=== PATIENT | female | born 1970 | race Caucasian/White ===

== ENCOUNTER 2018-01-04 12:52 | Emergency (ER) | payer OTHER, SELFPAY ==
--- NOTE | 2018-01-04 12:25 | PC.NURSE ---
Dr Crowley office [facility] reports they are sending pt over for possible recurrent diverticulitis. pt recently had colonic resection at [facility] with iv antibiotics at [facility]. any questions can call dr navarro office at [phone]
[2018-01-04 13:09] VITALS: BP 149/101; PULSE 105; RESP 18; TEMP 36.8; O2SAT 100; BMI 24.7
--- NOTE | 2018-01-04 13:37 | ED.ABDPAIN ---
HPI - Abdominal Pain General Chief Complaint: Abdominal Pain Stated Complaint: abcess on colon,states everything hurts,fever Time Seen by Provider: 01/04/18 13:35 Source: patient Mode of arrival: ambulatory Limitations: no limitations History of Present Illness HPI narrative: 47-year-old female here for evaluation of body aches and abdominal pain. Patient within the past couple months has had a colonic diverticular abscess that was treated with IV antibiotics through a PICC line for several weeks. She stopped that approximately 3 weeks ago and then finished a course of oral antibiotics approximately 2 weeks ago. She states that since then she has started to feel more fatigue and body aches and pain in the left lower quadrant in the area where her abscess was prior. Denies any change in her stool. Was exposed to someone with the ?flu ?recently. Denies any nausea vomiting or skin change Related Data Home Medications Medication Instructions Recorded Confirmed aspirin 325 mg PO DAILY 01/04/18 01/04/18 insulin glargine [Lantus Solostar 20 units SUB-Q BID 01/04/18 01/04/18 U-100 Insulin] Allergies Allergy/AdvReac Type Severity Reaction Status Date / Time No Known Drug Allergies Allergy Verified 01/04/18 13:09 Review of Systems Constitutional Denies chills, Reports fatigue, Denies fever(s), Denies headache(s) and Reports lethargy ENT Ears, Nose, Mouth, and Throat: Denies dizziness and Denies headache(s) Cardiovascular Denies chest pain, Denies syncope, Denies palpitations and Denies dyspnea Respiratory Denies cough and Denies dyspnea Gastrointestinal Gastrointestinal: Reports abdominal pain, Denies change in stool character, Denies constipation, Denies diarrhea, Denies nausea and Denies vomiting Genitourinary Denies dysuria and Denies flank pain Musculoskeletal Denies myalgias and Denies arthralgias Neurologic Denies dizziness, Denies syncope and Denies headache(s) Endocrine Reports fatigue and Denies palpitations Hematologic/Lymphatic Denies easy bleeding and Denies easy bruising Allergic/Immunologic Denies urticaria Exam Initial Vital Signs Initial Vital Signs: Vital Signs Temperature 98.3 F 01/04/18 13:09 Pulse Rate 105 H 01/04/18 13:09 Respiratory Rate 18 01/04/18 13:09 Blood Pressure 149/101 H 01/04/18 13:09 Pulse Oximetry 100 01/04/18 13:09 Const General: cooperative, healthy appearing, comfortable, well developed, well groomed and No acute distress Nutritional Appearance: well nourished Orientation: alert, awake, oriented x3 and not confused HENMT Head: normal to inspection and normocephalic Resp Effort & Inspection: normal respiratory effort, able to speak in complete sentences, no respiratory distress and no use of accessory muscles Auscultation: clear to auscultation bilaterally, no rales, no rhonchi and no wheezes Cardio Rate: regular rate Rhythm: regular rhythm Heart Sounds: no click, no gallops, no murmurs and no rubs Pulses: normal peripheral pulses GI Inspection: non-distended Palpation: soft, No firm, No guarding and tender (Left lower quadrant) Back/Spine/Pelvis Back: No CVA tenderness Skin Lesions: no lesions Rashes: no rashes Neuro General: alert, awake and oriented x3 Cognition: normal cognition Speech: speech normal Extrem General: normal to inspection Psych Appearance: grossly normal and well kempt Course Orders Ordered: ED Orders 01/04/18 13:51 CT abdomen pelvis w con Stat 01/04/18 14:10 Complete Blood Count AUTO DIFF Stat Comprehensive Metabolic Panel Stat Lactate (Lactic Acid) Stat Lipase Stat Discontinued Medications Sodium Chloride (Normal Saline 0.9%) 1,000 mls @ 1,000 mls/hr IV BOLUS ONE Stop: 01/04/18 14:49 Last Infusion: 01/04/18 15:45 Dose: 0 mls/hr Admin: 01/04/18 14:14 Dose: 1,000 mls/hr Morphine Sulfate (Morphine) 4 mg IV NOW ONE Stop: 01/04/18 14:51 Last Admin: 01/04/18 14:56 Dose: 4 mg Ondansetron HCl (Zofran) 4 mg IV NOW ONE Stop: 01/04/18 14:51 Last Admin: 01/04/18 14:56 Dose: 4 mg Vital Signs - 8 hr 01/04/18 13:09 01/04/18 13:54 01/04/18 14:30 Temperature 98.3 F Pulse Rate 105 H 85 81 Respiratory Rate 18 17 16 Blood Pressure 149/101 H Blood Pressure [Left Arm] 184/99 H 168/112 H Pulse Oximetry 100 100 100 01/04/18 15:43 Temperature Pulse Rate 93 H Respiratory Rate 18 Blood Pressure Blood Pressure [Left Arm] 190/94 H Pulse Oximetry 100 MDM - Abdominal Pain Lab Data Attestation: I reviewed the patient's lab results. Result diagrams: 01/04/18 14:10 01/04/18 14:10 Lab Results 01/04/18 01/04/18 01/04/18 Range/Units 14:10 14:10 14:10 WBC 6.0 (4.5-11.0) X10^3/uL RBC 4.63 (4.0-5.2) X10^6/uL Hgb 14.9 (12.0-16.0) g/dL Hct 42.7 (36-46) % MCV 92.2 (80-100) fL MCH 32.1 (26-34) PG MCHC 34.8 (30-36) % RDW 13.9 (11.6-14.8) % Plt Count 237 (150-400) X10^3/uL Neut % (Auto) 59.9 (50-75) % Lymph % (Auto) 29.1 (25-40) % [place] % (Auto) 10.1 (3-14) % Eos % (Auto) 0.2 L (2-4) % Baso % (Auto) 0.7 (0-2) % Neut # (Auto) 3600 (7922-8052) /uL Sodium 138 (137-145) mmol/L Potassium 3.9 (3.4-5.1) mmol/L Chloride 97 L (98-107) mmol/L Carbon Dioxide 24 (22-32) mmol/L BUN 8 (7-17) mg/dL Creatinine 0.50 L (0.52-1.04) mg/dL Estimated GFR > 60.0 (>60) mL/min BUN/Creatinine Ratio 16.0 (6-22) Glucose 206 H (70-100) mg/dL Lactate 2.6 H (0.7-2.1) mmol/L Calcium 9.9 (8.4-10.2) mg/dL Total Bilirubin 1.3 (0.2-1.3) mg/dL AST 27 (14-36) IU/L ALT 43 (9-52) IU/L Alkaline Phosphatase 85 (38-126) U/L Total Protein 7.6 (6.3-8.2) g/dL Albumin 4.6 (3.5-5.0) g/dL Globulin 3.0 (1.7-4.1) g/dL Albumin/Globulin Ratio 1.5 (1.0-2.8) Lipase 131 (23-300) U/L 01/04/18 Range/Units 19:00 WBC (4.5-11.0) X10^3/uL RBC (4.0-5.2) X10^6/uL Hgb (12.0-16.0) g/dL Hct (36-46) % MCV (80-100) fL MCH (26-34) PG MCHC (30-36) % RDW (11.6-14.8) % Plt Count (150-400) X10^3/uL Neut % (Auto) (50-75) % Lymph % (Auto) (25-40) % [place] % (Auto) (3-14) % Eos % (Auto) (2-4) % Baso % (Auto) (0-2) % Neut # (Auto) (0139-1546) /uL Sodium (137-145) mmol/L Potassium (3.4-5.1) mmol/L Chloride (98-107) mmol/L Carbon Dioxide (22-32) mmol/L BUN (7-17) mg/dL Creatinine (0.52-1.04) mg/dL Estimated GFR (>60) mL/min BUN/Creatinine Ratio (6-22) Glucose (70-100) mg/dL Lactate Cancelled (0.7-2.1) mmol/L Calcium (8.4-10.2) mg/dL Total Bilirubin (0.2-1.3) mg/dL AST (14-36) IU/L ALT (9-52) IU/L Alkaline Phosphatase (38-126) U/L Total Protein (6.3-8.2) g/dL Albumin (3.5-5.0) g/dL Globulin (1.7-4.1) g/dL Albumin/Globulin Ratio (1.0-2.8) Lipase (23-300) U/L Imaging Data CT scan - abdomen: Radiologist's impression: PROCEDURE: CT ABDOMEN PELVIS W CON INDICATIONS: 47 year-old female with left abdominal pain. Recent history of paracolonic abscess in November 2017. TECHNIQUE: After the administration of intravenous contrast, 5 mm thick sections acquired from the diaphragm to the symphysis. 5 mm coronal and sagittal reformats were acquired. For radiation dose reduction, the following was used: automated exposure control, adjustment of mA and/or kV according to patient size. COMPARISON: [facility], [place], CT ABDOMEN/PELVIS WITH CONTRAST, 11/15/2017, 13:28. FINDINGS: Image quality: Excellent. ABDOMEN: Lung bases: Lung bases are clear. Heart size is normal. Solid organs: Liver is normal in size, with diffuse fatty infiltration. Gallbladder wall thickness is normal. Biliary system is non dilated. Pancreas enhances normally. Spleen is normal in size and enhancement. No adrenal nodules. Kidneys demonstrate normal size and enhancement, without hydronephrosis. Peritoneum and bowel: Bowel loops demonstrate normal wall thickness and caliber. Patient is status post interval segmental sigmoid colon resection. Previously noted paracolonic abscess is no longer present. No free fluid or air. Nodes and vessels: No retroperitoneal or mesenteric adenopathy by size criteria. Aorta and inferior vena cava are normal in size. Miscellaneous: Patient is status post presumed periumbilical ventral hernia repair. PELVIS: Genitourinary: Bladder wall thickness is normal. Uterus and ovaries are normal in size. Miscellaneous: No inguinal hernias or adenopathy. Bones: No suspicious bony lesions. No vertebral body compression fractures. IMPRESSION: 1. No imaging explanation for left lower quadrant abdominal pain, status post interval segmental sigmoid colon resection. Previously noted paracolonic abscess is no longer present. 2. Diffuse fatty infiltration of the liver. Dictated by: Ramírez Hinojosa M.D. on 01/04/2018 at 14:56 MDM Narrative Medical decision making narrative: Patient is hyperglycemic but is also an insulin-dependent diabetic. CT scan does not show signs of repeat or new abscess. Patient had a relatively benign abdominal exam here in the ER. No other signs of infection. Patient has no change in her bowel habits. Will hold on further workup for now. She was given return precautions. She expressed understanding and agreement with plan Discharge Plan Departure Patient Disposition: Home, Self-Care Clinical Impression: Abdominal pain Discharge Date/Time: 01/04/18 16:39 Interventions: ED Discharge Assessment Last Done: 01/04/18 16:39 Instructions: DI for Abdominal Pain-Adult Activity Restrictions/Additional Instructions: Continue all of your medications as directed. Return to the emergency department for any new or worsening symptoms. Call your primary care doctor for a follow-up. Prescriptions: No Action insulin glargine [Lantus Solostar U-100 Insulin] 100 unit/mL (3 mL) insulin pen 20 units Sub-Q BID RF: 0 aspirin 325 mg Tablet 325 mg PO DAILY RF: 0
--- NOTE | 2018-01-04 13:51 | DI.CT.S_ITS ---
PROCEDURE: CT ABDOMEN PELVIS W CON INDICATIONS: 47 year-old female with left abdominal pain. Recent history of paracolonic abscess in November 2017. TECHNIQUE: After the administration of intravenous contrast, 5 mm thick sections acquired from the diaphragm to the symphysis. 5 mm coronal and sagittal reformats were acquired. For radiation dose reduction, the following was used: automated exposure control, adjustment of mA and/or kV according to patient size. COMPARISON: [facility], , CT ABDOMEN/PELVIS WITH CONTRAST, 11/15/2017, 13:28. FINDINGS: Image quality: Excellent. ABDOMEN: Lung bases: Lung bases are clear. Heart size is normal. Solid organs: Liver is normal in size, with diffuse fatty infiltration. Gallbladder wall thickness is normal. Biliary system is non dilated. Pancreas enhances normally. Spleen is normal in size and enhancement. No adrenal nodules. Kidneys demonstrate normal size and enhancement, without hydronephrosis. Peritoneum and bowel: Bowel loops demonstrate normal wall thickness and caliber. Patient is status post interval segmental sigmoid colon resection. Previously noted paracolonic abscess is no longer present. No free fluid or air. Nodes and vessels: No retroperitoneal or mesenteric adenopathy by size criteria. Aorta and inferior vena cava are normal in size. Miscellaneous: Patient is status post presumed periumbilical ventral hernia repair. PELVIS: Genitourinary: Bladder wall thickness is normal. Uterus and ovaries are normal in size. Miscellaneous: No inguinal hernias or adenopathy. Bones: No suspicious bony lesions. No vertebral body compression fractures. IMPRESSION: 1. No imaging explanation for left lower quadrant abdominal pain, status post interval segmental sigmoid colon resection. Previously noted paracolonic abscess is no longer present. 2. Diffuse fatty infiltration of the liver. Dictated by: Ramírez Hinojosa M.D. on 01/04/2018 at 14:56 Approved by: Ramírez Hinojosa M.D. on 01/04/2018 at 15:03
[2018-01-04 13:54] VITALS: BP 184/99; PULSE 85; RESP 17; O2SAT 100
[2018-01-04] MEDS: SODIUM CHLORIDE 0.9% 1,000 ML 1000 ML IV (14:14)
[2018-01-04 14:17] LABS: Add Manual Diff / Slide Review NO; Basophils Percent Auto 0.7 % (0-2); Eosinophils Percent Auto 0.2 % (2-4); Hematocrit 42.7 % (36-46); Hemoglobin 14.9 g/dL (12.0-16.0); Lymphocytes Percent Auto 29.1 % (25-40); Mean Corpuscular HGB Conc 34.8 % (30-36); Mean Corpuscular Hemoglobin 32.1 PG (26-34); Mean Corpuscular Volume 92.2 fL (80-100); Monocytes Percent Auto 10.1 % (3-14); Neutrophils Absolute Auto 3600 /uL (3000-5900); Neutrophils Percent Auto 59.9 % (50-75); Platelet Count 237 X10^3/uL (150-400); Red Blood Cell Count 4.63 X10^6/uL (4.0-5.2); Red Cell Distribution Width 13.9 % (11.6-14.8)
[2018-01-04 14:26] LABS: Lactate (Lactic Acid) 2.6 mmol/L (0.7-2.1)
[2018-01-04 14:27] LABS: Alanine Aminotransferase 43 IU/L (9-52); Albumin 4.6 g/dL (3.5-5.0); Albumin Globulin Ratio 1.5 (1.0-2.8); Alkaline Phosphatase 85 U/L (38-126); Aspartate Aminotransferase 27 IU/L (14-36); Bilirubin Total 1.3 mg/dL (0.2-1.3); Blood Urea Nitrogen 8 mg/dL (7-17); Calcium 9.9 mg/dL (8.4-10.2); Carbon Dioxide 24 mmol/L (22-32); Chloride 97 mmol/L (98-107); Estimated Glomerular Filt Rate > 60.0 mL/min (>60); Glucose 206 mg/dL (70-100); HEMOLYSIS < 15 (0-50); Lipase 131 U/L (23-300); Potassium 3.9 mmol/L (3.4-5.1); Sodium 138 mmol/L (137-145); Total Protein 7.6 g/dL (6.3-8.2)
[2018-01-04 14:30] VITALS: BP 168/112; PULSE 81; RESP 16; O2SAT 100
[2018-01-04] MEDS: ONDANSETRON 4 MG/2 ML INJ IV (14:56)
[2018-01-04] MEDS: MORPHINE 4 MG/ML INJ IV (14:56)
[2018-01-04 15:43] VITALS: BP 190/94; PULSE 93; RESP 18; O2SAT 100
[2018-01-04 18:11] LABS: Reflexed Lactate in 2 Hours Y
== END 2018-01-04 16:39 | disposition home or self-care (01) ==
PROVIDERS: Emergency Provider Emergency Medicine
DX: R10.9 Unspecified abdominal pain (principal)
CPT/HCPCS: 36591; 74177; 80053; 81003; 81025; 83605; 83690; 85025; 96361; 96374; 96375; 99283; 99285; J2270; J2405